=== PATIENT | male | born 1985 | race African-American/Black ===

== ENCOUNTER 2022-09-07 15:44 | Emergency (ER) | payer OTHER, MEDICARE | END 2022-09-07 17:12 | disposition home or self-care (01) | LOC: EDBD → VM.ED 15:44 | DX: S16.1XXA Strain of muscle, fascia and tendon at neck level, initial encounter (principal); V89.2XXA Person injured in unspecified motor-vehicle accident, traffic, initial encounter; Y92.410 Unspecified street and highway as the place of occurrence of the external cause | CPT/HCPCS: 99283 ==